=== PATIENT | male | born 1960 | race Caucasian/White ===

== ENCOUNTER 2021-02-11 06:30 | Observation (INO) | payer OTHER ==
[2021-02-11] MEDS ORDERED: ASPIRIN 81 MG CHEWABLE TABLETS PO ONE (06:41)
[2021-02-11] MEDS ORDERED: dilTIAZem HCL 125 MG/25 ML - 25 ML VIAL ONE (06:52)
[2021-02-11] MEDS ORDERED: dilTIAZem HCL 50 MG/10 ML - 10 ML VIAL IVPUSH ONE (06:57)
[2021-02-11] MEDS ORDERED: ASPIRIN 81 MG CHEWABLE TABLETS ONE (07:02)
[2021-02-11 07:30] LABS: BASO % 0.9 % (0-2.0); EOS % 4.4 % (0-4.5); HEMATOCRIT 47.5 % (35.4-49); HEMOGLOBIN 16.6 GM/dL (11.7-16.9); LYMPH % 39.7 % (8-40); MCH 32.5 pg (25.7-33.7); MCHC 34.9 g/dl (32.0-35.9); MEAN CELL VOLUME 93.4 fl (80-96); MEAN PLT VOLUME 8.5 fl (7.5-11.1); MONO % 7.8 % (3.8-10.2); NEUT % 47.2 % (42.8-82.8); PLATELET COUNT 199 10^3/uL (134-434); RBC 5.09 M/mm3 (4.00-5.60); RDW 13.7 % (11.9-15.9)
[2021-02-11 07:40] LABS: INR 0.84 (0.83-1.09); PROTHROMBIN TIME (PATIENT) 10.3 SEC (9.7-13.0)
[2021-02-11 07:42] LABS: ACTIVATED PTT 30.1 SECONDS (25.2-36.5)
[2021-02-11 07:48] LABS: CALCIUM 9.1 mg/dL (8.5-10.1)
[2021-02-11 07:49] LABS: ALBUMIN 3.8 g/dl (3.4-5.0); BLOOD UREA NITROGEN 18.4 mg/dL (7-18)
[2021-02-11 07:52] LABS: CREATININE 1.2 mg/dL (0.55-1.3)
[2021-02-11] MEDS ORDERED: dilTIAZem HCL 60 MG TABLET ONE (08:25)
[2021-02-11] MEDS ORDERED: ENOXAPARIN NA (PORCINE) 40 MG/0.4 ML DISP.SYRIN SQ ONE (08:26)
[2021-02-11] MEDS ORDERED: ENOXAPARIN NA (PORCINE) 40 MG/0.4 ML DISP.SYRIN SQ SCH (10:00)
[2021-02-11 10:21] LABS: URINE APPEARANCE CLEAR; URINE BILIRUBIN NEGATIVE (NEGATIVE); URINE COLOR YELLOW; URINE GLUCOSE (UA) NEGATIVE (NEGATIVE); URINE KETONE NEGATIVE (NEGATIVE); URINE LEUK ESTERASE NEGATIVE (NEGATIVE); URINE NITRITE NEGATIVE (NEGATIVE); URINE PROTEIN NEGATIVE (NEGATIVE); URINE UROBILINOGEN 0.2 mg/dL (0.2-1.0)
[2021-02-11] MEDS: LOSARTAN POTASSIUM 50 MG TABLET PO SCH ×2 (12:18→12:34)
[2021-02-11] MEDS ORDERED: LOSARTAN POTASSIUM 50 MG TABLET ONE (12:18)
[2021-02-11 16:39] VITALS: BMI 39.0
[2021-02-11] MEDS ORDERED: LOSARTAN POTASSIUM 50 MG TABLET PO ONE (17:41)
[2021-02-11] MEDS ORDERED: ATORVASTATIN CA 20 MG TABLET (FP) PO SCH (22:00)
[2021-02-11] MEDS: APIXABAN 5 MG TABLET PO SCH (22:02)
[2021-02-12 07:27] LABS: HEMATOCRIT 44.7 % (35.4-49); HEMOGLOBIN 15.1 GM/dL (11.7-16.9); MCH 32.1 pg (25.7-33.7); MCHC 33.7 g/dl (32.0-35.9); MEAN CELL VOLUME 95.2 fl (80-96); MEAN PLT VOLUME 8.9 fl (7.5-11.1); PLATELET COUNT 202 10^3/uL (134-434); RDW 13.5 % (11.9-15.9)
[2021-02-12 08:15] LABS: ALBUMIN 3.3 g/dl (3.4-5.0); CALCIUM 8.6 mg/dL (8.5-10.1); MAGNESIUM 2.3 mg/dL (1.8-2.4)
[2021-02-12 08:18] LABS: CREATININE 1.1 mg/dL (0.55-1.3); PHOSPHOROUS 2.8 mg/dL (2.5-4.9)
[2021-02-12 08:19] LABS: BILIRUBIN,TOTAL 1.5 mg/dL (0.2-1); TOT PROT 6.9 g/dl (6.4-8.2)
[2021-02-12] MEDS: APIXABAN 5 MG TABLET PO SCH (09:20)
[2021-02-12] MEDS: LOSARTAN POTASSIUM 50 MG TABLET PO SCH (09:20)
[2021-02-12 11:14] VITALS: BP 127/77; PULSE 64; TEMP 97.8
== END 2021-02-12 16:41 | disposition home or self-care (01) ==
LOC: JER 06:30 → JERBED 08:00 → J4W 16:13
PROVIDERS: ADMIT Internal Medicine; ATTEND Internal Medicine
PROC: 3E023GC Introduction of Other Therapeutic Substance into Muscle, Percutaneous Approach (ICD-10-PCS; principal; 2021-02-11)
DX: I48.0 Paroxysmal atrial fibrillation (principal); E66.9 Obesity, unspecified; Z68.39 Body mass index [BMI] 39.0-39.9, adult; I10 Essential (primary) hypertension; R00.2 Palpitations; E78.5 Hyperlipidemia, unspecified; Z72.89 Other problems related to lifestyle; F10.99 Alcohol use, unspecified with unspecified alcohol-induced disorder; G47.33 Obstructive sleep apnea (adult) (pediatric); Z29.9 Encounter for prophylactic measures, unspecified
CPT/HCPCS: 36415; 71045-TC-FY; 80053; 80061; 81003; 82550; 83036; 83735; 84100; 84439; 84443; 84484; 85025; 85027; 85610; 85730; 93005; 93010; 93306-TC; 96372; 99285-25; C9803; G0378; U0003; U0005